=== PATIENT | male | born 1975 | race Caucasian/White ===

== ENCOUNTER 2023-05-10 09:22 | Observation (INO) | payer BC ==
[2023-05-10 10:20] LABS: BASO % 0.6 % (0-2.0); EOS % 0.7 % (0-4.5); HEMATOCRIT 40.4 % (35.4-49); HEMOGLOBIN 13.9 GM/dL (11.7-16.9); LYMPH % 25.1 % (8-40); MCH 29.3 pg (25.7-33.7); MCHC 34.5 g/dl (32.0-35.9); MEAN CELL VOLUME 84.9 fl (80-96); MEAN PLT VOLUME 8.8 fl (7.5-11.1); MONO % 5.3 % (3.8-10.2); NEUT % 68.3 % (42.8-82.8); PLATELET COUNT 180 10^3/uL (134-434); RBC 4.76 M/mm3 (4.00-5.60); RDW 13.6 % (11.9-15.9); WHITE BLOOD COUNT 6.4 K/mm3 (4.0-10.0)
[2023-05-10 10:26] LABS: INR 1.15 (0.83-1.09); PROTHROMBIN TIME (PATIENT) 13.3 SEC (9.7-13.0)
[2023-05-10 10:28] LABS: ACTIVATED PTT 29.9 SECONDS (25.2-36.5); POTASSIUM 4.9 mmol/L (3.5-5.1)
[2023-05-10 10:30] LABS: ALBUMIN 3.9 g/dl (3.4-5.0); BLOOD UREA NITROGEN 11.7 mg/dL (7-18); CALCIUM 9.2 mg/dL (8.5-10.1); MAGNESIUM 1.7 mg/dL (1.8-2.4)
[2023-05-10 10:32] LABS: CREATININE 0.7 mg/dL (0.55-1.3)
[2023-05-10 10:34] LABS: TOT PROT 7.7 g/dl (6.4-8.2)
[2023-05-10 10:35] LABS: BILIRUBIN,TOTAL 0.8 mg/dL (0.2-1)
[2023-05-10 10:38] LABS: N-TERMINAL BNP 24.1 pg/ml (5-125)
[2023-05-10] MEDS ORDERED: LISINOPRIL 5 MG TABLET ONE (11:20)
[2023-05-10] MEDS: LISINOPRIL 5 MG TABLET PO ONE (11:23)
[2023-05-10] MEDS ORDERED: ACETAMINOPHEN 325 MG TABLET (FP) ONE (14:50)
[2023-05-10] MEDS: ACETAMINOPHEN 500 MG TABLET (FP) PO PRN (14:52)
[2023-05-11 01:21] VITALS: BMI 12.6
[2023-05-11 07:36] LABS: BASO % 0.5 % (0-2.0); EOS % 2.1 % (0-4.5); HEMATOCRIT 38.5 % (35.4-49); HEMOGLOBIN 13.7 GM/dL (11.7-16.9); LYMPH % 43.7 % (8-40); MCHC 35.6 g/dl (32.0-35.9); MEAN CELL VOLUME 84.3 fl (80-96); MEAN PLT VOLUME 9.7 fl (7.5-11.1); MONO % 7.3 % (3.8-10.2); NEUT % 46.4 % (42.8-82.8); PLATELET COUNT 181 10^3/uL (134-434); RBC 4.56 M/mm3 (4.00-5.60); RDW 13.4 % (11.9-15.9)
[2023-05-11 08:04] LABS: POTASSIUM 4.1 mmol/L (3.5-5.1)
[2023-05-11 08:24] LABS: CALCIUM 9.5 mg/dL (8.5-10.1)
[2023-05-11 08:28] LABS: CREATININE 0.7 mg/dL (0.55-1.3)
[2023-05-11] MEDS: LISINOPRIL 5 MG TABLET PO SCH (09:34)
[2023-05-11] MEDS: PANTOPRAZOLE 20 MG TABLET PO SCH (09:34)
[2023-05-11 11:15] VITALS: BP 113/78; PULSE 74; RESP 18; TEMP 97.3
== END 2023-05-11 18:30 | disposition home or self-care (01) ==
LOC: JER 09:22 → JERBED 11:04 → J4W 05-11 01:05
PROVIDERS: ADMIT Internal Medicine; ATTEND Internal Medicine
DX: R07.89 Other chest pain (principal); F10.99 Alcohol use, unspecified with unspecified alcohol-induced disorder; I10 Essential (primary) hypertension; R94.31 Abnormal electrocardiogram [ECG] [EKG]; K21.9 Gastro-esophageal reflux disease without esophagitis; E78.5 Hyperlipidemia, unspecified
CPT/HCPCS: 0241U-QW; 36415; 71045-TC-FY; 80048; 80053; 82962; 83735; 83880; 84484; 85025; 85379; 85610; 85730; 93005; 93010; 93306-TC; 99285-25; G0378

== ENCOUNTER 2023-05-17 12:19 | Emergency (ER) | payer BC ==
[2023-05-17 12:28] VITALS: BP 115/78; PULSE 94; RESP 18; TEMP 97; BMI 29.5
[2023-05-17 14:19] LABS: BASO % 0.9 % (0-2.0); EOS % 1.7 % (0-4.5); HEMATOCRIT 40.4 % (35.4-49); HEMOGLOBIN 13.8 GM/dL (11.7-16.9); LYMPH % 34.9 % (8-40); MCH 29.4 pg (25.7-33.7); MCHC 34.1 g/dl (32.0-35.9); MEAN CELL VOLUME 86.1 fl (80-96); MEAN PLT VOLUME 9.4 fl (7.5-11.1); MONO % 6.5 % (3.8-10.2); PLATELET COUNT 194 10^3/uL (134-434); RBC 4.69 M/mm3 (4.00-5.60); RDW 13.3 % (11.9-15.9); WHITE BLOOD COUNT 8.5 K/mm3 (4.0-10.0)
[2023-05-17 14:26] LABS: POTASSIUM 4.3 mmol/L (3.5-5.1)
[2023-05-17 14:28] LABS: CALCIUM 9.4 mg/dL (8.5-10.1)
[2023-05-17 14:29] LABS: ALBUMIN 4.2 g/dl (3.4-5.0)
[2023-05-17 14:32] LABS: CREATININE 0.9 mg/dL (0.55-1.3)
[2023-05-17 14:33] LABS: TOT PROT 7.7 g/dl (6.4-8.2)
[2023-05-17 14:34] LABS: BILIRUBIN,TOTAL 0.7 mg/dL (0.2-1)
[2023-05-17] MEDS ORDERED: CYCLOBENZAPRINE HCL 10 MG TABLET (FP) ONE (14:45)
[2023-05-17] MEDS ORDERED: KETOROLAC TROMETHAMINE 30 MG/1 ML VIAL ONE (14:45)
[2023-05-17] MEDS: KETOROLAC TROMETHAMINE 30 MG/1 ML VIAL IVPUSH ONE (14:49)
[2023-05-17] MEDS: CYCLOBENZAPRINE HCL 10 MG TABLET (FP) PO ONE (14:49)
== END 2023-05-17 16:16 | disposition home or self-care (01) ==
LOC: JER 12:19
PROC: 3E0333Z Introduction of Anti-inflammatory into Peripheral Vein, Percutaneous Approach (ICD-10-PCS; principal; 2023-05-17)
DX: R07.89 Other chest pain (principal); M79.10 Myalgia, unspecified site; Z20.822 Contact with and (suspected) exposure to COVID-19
CPT/HCPCS: 0241U-QW; 36415; 71046-TC-FY; 80053; 84484; 85025; 93005; 93010; 99285-25